=== PATIENT | male | born 1990 | race Caucasian/White ===

== ENCOUNTER 2024-09-16 23:25 | Emergency (ER) | payer MEDICAID, OTHER ==
[~2024-09-16] VITALS: Ht 175.3 cm; Wt 75.0 kg
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
[2024-09-17] MEDS: TETANUS-DIPTH-ACEL PERTUSSIS 0.5ML SYR Tdap IM ONE (00:15)
[2024-09-17] MEDS: ceFAZolin 1GM/50ML 50 ML IV ONE (00:15)
[2024-09-17] MEDS: SODIUM CHLORIDE 0.9% 1,000 ML IV ONE (00:15)
[2024-09-17 00:30] VITALS: PULSE 78; O2SAT 96
[2024-09-17 00:35] LABS: Basophils # (auto) 0 10 ^3/uL (0-0.2); Basophils % (auto) 0.5 % (0.0-2.0); Eosinophils # (auto) 0.1 10 ^3/uL (0-0.8); Hematocrit 43.4 % (41.0-53.0); Hemoglobin 15.1 g/dL (13.5-17.5); Lymphocytes # (auto) 2.4 10 ^3/uL (0.4-5.4); Lymphocytes % (auto) 26.5 % (10.0-50.0); Mean Corpuscular Hemoglobin 30.2 pg (28.0-32.0); Mean Corpuscular Hgb Conc. 34.7 g/dL (32.0-36.0); Monocytes # (auto) 0.6 10 ^3/uL (0-1.3); Monocytes % (auto) 6.4 % (0.0-12.0); Neutrophils # (auto) 5.8 10 ^3/uL (1.6-8.6); Neutrophils % (auto) 65.6 % (37.0-80.0); Nucleated Red Blood Cells % 0.1 %; Platelet Count (auto) 423 10^3/uL (140-450); Red Blood Cells 4.99 10^6/uL (4.5-5.90); Red Cell Distribution Width 12.5 % (11.8-14.3); White Blood Cell 8.9 10^3/uL (4.4-10.8)
[2024-09-17 00:49] LABS: Alanine Aminotransferase 26 U/L (7-40); Alkaline Phosphatase 79 U/L (46-116); Anion Gap 10 (5-15); Aspartate Aminotransferase 39 U/L (13-40); Carbon Dioxide 29 mmol/L (20-31); Chloride 104 mmol/L (98-107); Glucose 105 mg/dL (74-106); Sodium 143 mmol/L (136-145); Total Protein 7.7 g/dL (5.7-8.2)
[2024-09-17 00:50] LABS: Bilirubin, Total 0.4 mg/dL (0.2-1.0)
[2024-09-17 00:56] LABS: Blood Urea Nitrogen 8 mg/dL (9-23); Creatine Kinase IFCC 298 U/L (46-171)
[2024-09-17] MEDS: POTASSIUM CHL 20 Meq TABLET PO ONE (01:00)
[2024-09-17 01:43] LABS: Blood Alcohol 290.7 mg/dL (<10)
[2024-09-17 01:44] LABS: Amphetamine Screen, Urine Neg (NEGATIVE); Barbiturate Scree,Urine Neg (NEGATIVE); Benzodiazephine Screen, Urine Neg (NEGATIVE); Cannabinoid Screen, Urine Neg (NEGATIVE); Cocaine Screen, Urine Neg (NEGATIVE); Opiate Scree,Urine Neg (NEGATIVE); Phencyclidine Screen, Urine Neg (NEGATIVE)
[2024-09-17] MEDS: LORazepam 2MG/ML-1ML VIAL IV ONE ×2 (05:00)
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
[2024-09-17 08:00] VITALS: PULSE 94; RESP 15; O2SAT 95
[2024-09-17 09:58] VITALS: BP 120/80; PULSE 82; RESP 15; TEMP 99.9; O2SAT 97
== END 2024-09-17 10:03 | disposition short-term general hospital (02) ==
LOC: ER 23:25 → EDBD 23:25 → ER 09-17 10:03
DX: S01.81XA Laceration without foreign body of other part of head, initial encounter (principal); S09.93XA Unspecified injury of face, initial encounter; F10.129 Alcohol abuse with intoxication, unspecified; Y90.9 Presence of alcohol in blood, level not specified; Z79.899 Other long term (current) drug therapy; Y08.89XA Assault by other specified means, initial encounter; Y93.89 Activity, other specified; Y92.89 Other specified places as the place of occurrence of the external cause; Y99.8 Other external cause status
CPT/HCPCS: 36415; 70450; 70486; 72125; 80053; 80307; 80320; 82550; 84484; 85025; 90471; 90715; 96365; 96375; 99285; J0690; J2060